=== PATIENT | male | born 1965 | race Hispanic/Latino ===

== ENCOUNTER 2020-01-21 15:47 | Inpatient (IN) | payer OTHER ==
--- NOTE | 2020-01-21 17:10 | XRay Report ---
ABDOMEN 2 VIEW(S) INDICATION / CLINICAL INFORMATION: abd pain, constipation. COMPARISON: None available. FINDINGS: TUBES / LINES: None. BOWEL GAS PATTERN: No significant abnormality. FREE AIR / EXTRALUMINAL GAS: None seen. ADDITIONAL FINDINGS: No significant additional findings. IMPRESSION: 1. No significant abnormality. Signer Name: Juan Pablo Brandon MD Signed: 01/21/2020 5:06 PM Workstation Name: [id number]
[2020-01-21 17:19] LABS: Basophils # (Auto) 0.1 K/mm3 (0.0-0.1); Basophils % (Auto) 0.5 % (0.0-1.8); Eosinophils # (Auto) 0.1 K/mm3 (0.0-0.4); Eosinophils % (Auto) 0.7 % (0.0-4.3); Hematocrit 51.8 % (35.5-45.6); Hemoglobin 18.2 gm/dl (11.8-15.2); Lymphocytes # (Auto) 1.1 K/mm3 (1.2-5.4); Lymphocytes % (Auto) 9.8 % (13.4-35.0); Mean Corpuscular HGB Conc 35 % (32-34); Mean Corpuscular Volume 96 fl (84-94); Monocytes # (Auto) 0.9 K/mm3 (0.0-0.8); Monocytes % (Auto) 7.9 % (0.0-7.3); Platelet Count 197 K/mm3 (140-440); Red Blood Count 5.38 M/mm3 (3.65-5.03); Red Cell Distribution Width 13.4 % (13.2-15.2)
[2020-01-21 17:34] LABS: Alanine Aminotransferase 159 units/L (7-56); Albumin 4.2 g/dL (3.9-5); BUN/Creatinine Ratio 6; Blood Urea Nitrogen 4 mg/dL (9-20); Calcium 9.4 mg/dL (8.4-10.2); Hemolysis Index 16
[2020-01-21] MEDS ORDERED: SODIUM CHLORIDE 0.9% 1000 ML 1,000 ML IV ONE ×2 (19:36→21:46)
[2020-01-21] MEDS ORDERED: HYDROmorphone 1 MG/1 ML INJ IV ONE (19:36)
[2020-01-21] MEDS ORDERED: ONDANSETRON 4 MG/2 ML INJ IV ONE (19:36)
--- NOTE | 2020-01-21 19:38 | Emergency Department Report ---
ED Abdominal Pain HPI - General Chief Complaint: Abdominal Pain Stated Complaint: STOMACH PAIN PUI?: No Time Seen by Provider: 01/21/20 19:19 Source: patient Mode of arrival: Ambulatory Limitations: No Limitations - History of Present Illness Initial Comments: Patient is a 54-year-old male that presents emergency room with complaints of abdominal pain. Patient dates the abdominal pain is generalized. Patient states the abdominal pain is a 10 out of 10. Patient also complains of nausea and vomiting. Patient states he is also having constipation. Patient states he has had a colon resection secondary to diverticulitis x2. Patient states he drinks alcohol every day. Patient takes he drinks a sixpack per day. Patient denies blood in his vomitus. Patient denies diarrhea. Patient denies fever and chills. Patient denies cough. Patient denies chest pain. Patient denies shortness of breath. Patient denies recent travel. Patient denies recent international travel. Patient denies exposure to the novel coronavirus. Patient denies sick contacts. Patient denies fever and chills. Patient denies cough. Patient denies diarrhea. Patient denies coming in contact with anybody with symptoms of the novel coronavirus. MD Complaint: abdominal pain -: Sudden Location: diffuse Radiation: none Migration to: no migration Severity: severe Severity scale (0 -10): 10 Quality: stabbing Consistency: constant Improves With: rest Worsens With: movement Associated Symptoms: nausea, vomiting, constipation. denies: diarrhea, fever, chills, dysuria, hematemesis, hematochezia, melena, hematuria, syncope - Related Data Previous Rx's Medication Instructions Recorded Last Taken Type Docusate Sodium [Colace CAP] 100 mg PO BID PRN #30 capsule 11/07/13 Unknown Rx Pantoprazole [Protonix TAB] 40 mg PO DAILY #30 tablet 11/07/13 Unknown Rx Ibuprofen [Motrin] 600 mg PO Q8H PRN #40 tablet 11/08/15 Unknown Rx Sulfamethoxazole/Trimethoprim 1 each PO BID #20 tablet 11/08/15 Unknown Rx [Bactrim DS TAB] Allergies Allergy/AdvReac Type Severity Reaction Status Date / Time No Known Allergies Allergy Verified 10/30/13 22:42 ED Review of Systems ROS: Stated complaint: STOMACH PAIN Other details as noted in HPI Constitutional: denies: chills, fever Eyes: denies: eye pain, eye discharge, vision change ENT: denies: ear pain, throat pain Respiratory: denies: cough, shortness of breath, wheezing Cardiovascular: denies: chest pain, palpitations Endocrine: no symptoms reported Gastrointestinal: abdominal pain, nausea, vomiting, constipation. denies: diarrhea, hematemesis, melena, hematochezia Genitourinary: denies: urgency, dysuria Musculoskeletal: denies: back pain, joint swelling, arthralgia Skin: denies: rash, lesions Neurological: denies: headache, weakness, paresthesias Psychiatric: denies: anxiety, depression Hematological/Lymphatic: denies: easy bleeding, easy bruising ED Past Medical Hx - Past Medical History Previous Medical History?: Yes Additional medical history: Diverticulitis. Diverticular perforation - Surgical History Past Surgical History?: Yes Additional Surgical History: shoulder surgery, colon resection. left leg hardware - Family History Family history: no significant - Social History Smoking Status: Current Every Day Smoker Substance Use Type: Alcohol - Medications Home Medications: Home Medications Medication Instructions Recorded Confirmed Last Taken Type Docusate Sodium [Colace CAP] 100 mg PO BID PRN #30 capsule 11/07/13 Unknown Rx Pantoprazole [Protonix TAB] 40 mg PO DAILY #30 tablet 11/07/13 Unknown Rx Ibuprofen [Motrin] 600 mg PO Q8H PRN #40 tablet 11/08/15 Unknown Rx Sulfamethoxazole/Trimethoprim 1 each PO BID #20 tablet 11/08/15 Unknown Rx [Bactrim DS TAB] ED Physical Exam - General Limitations: No Limitations General appearance: alert, in no apparent distress - Head Head exam: Present: atraumatic, normocephalic - Eye Eye exam: Present: normal appearance - ENT ENT exam: Present: mucous membranes moist - Neck Neck exam: Present: normal inspection - Respiratory Respiratory exam: Present: normal lung sounds bilaterally. Absent: respiratory distress - Cardiovascular Cardiovascular Exam: Present: regular rate, normal rhythm. Absent: systolic murmur, diastolic murmur, rubs, gallop - GI/Abdominal GI/Abdominal exam: Present: soft, tenderness (Generalized tenderness.), normal bowel sounds - Rectal Rectal exam: Present: deferred - Extremities Exam Extremities exam: Present: normal inspection - Back Exam Back exam: Present: normal inspection - Neurological Exam Neurological exam: Present: alert, oriented X3 - Psychiatric Psychiatric exam: Present: normal affect, normal mood - Skin Skin exam: Present: warm, dry, intact, normal color. Absent: rash ED Course Vital Signs 01/21/20 01/21/20 19:41 20:13 Pulse Rate 78 Respiratory 18 18 Rate Blood Pressure 168/91 [Right] O2 Sat by Pulse 100 Oximetry - Reevaluation(s) Reevaluation #1: Patient's lipase is elevated. Patient will have a CT scan of the abdomen with IV contrast. Patient will have an IV placed and given IV fluids and Dilaudid. 01/21/20 19:36 Reevaluation #2: Patient states his pain is better. I discussed all results with patient. I discussed plan of care with patient. Patient agrees with plan of care and admission. Patient to be admitted to the hospitalist service. 01/21/20 21:47 - Consultations Consultation #1: Hospitalist consulted for admission. Hospitalist to admit patient. Bridge orders placed. 01/21/20 21:47 ED Medical Decision Making - Lab Data Result diagrams: 01/21/20 16:48 01/21/20 16:48 - Radiology Data Radiology results: report reviewed CT abdomen pelvis w con INDICATION / CLINICAL INFORMATION: abd pain/elevated lipase/wbc. etoh, n/v, constiapa. TECHNIQUE: All CT scans at this location are performed using CT dose reduction for ALARA by means of automated exposure control. COMPARISON: None available. FINDINGS: No acute disease is seen in either lower lung. ABDOMEN: Line cholelithiasis. Gallbladder is partially contracted. The extrahepatic bile duct is slightly prominent without intrahepatic biliary dilatation. Fatty infiltration of the liver. The spleen is normal. Mild pancreatic ductal dilatation. There is peripancreatic edema particularly in the lesser sac region. There is normal enhancement of the pancreatic parenchyma and no pancreatic cystic disease is identified. No demonstrated choledocholithiasis. The adrenal glands and kidneys are normal. Atherosclerotic changes of the aortoiliac vessels are demonstrated without aneurysm. No small bowel distention. No mesenteric or retroperitoneal adenopathy. Pelvis: The appendix is normal. No dependent fluid collections or acute inflammatory changes are seen in the pelvis. Degenerative disc disease L5-S1. No acute skeletal abnormalities. IMPRESSION: 1. Mild pancreatitis. 2. Cholelithiasis. 3. Fatty liver. ABDOMEN 2 VIEW(S) INDICATION / CLINICAL INFORMATION: abd pain, constipation. COMPARISON: None available. FINDINGS: TUBES / LINES: None. BOWEL GAS PATTERN: No significant abnormality. FREE AIR / EXTRALUMINAL GAS: None seen. ADDITIONAL FINDINGS: No significant additional findings. IMPRESSION: 1. No significant abnormality. - Medical Decision Making Patient is a 34-year-old male who presents emergency room with generalized abdominal pain. Patient also complained of constipation, nausea and vomiting. Patient is a daily drinker. Patient was found to have elevated lipase. Patient had a CT done and was positive for cholelithiasis and mild pancreatitis. The rest of the patient's labs are unremarkable except for elevated WBC. Patient was given Dilaudid and Zofran and his pain improved.. Patient admitted to the ospitalist service. Patient encouraged to decrease his alcohol and go to rehab in order to quit. - Differential Diagnosis Pancreatitis, abdominal pain, SBO, LBO, N/V, diverticulitis Critical Care Time: Yes Critical care time in (mins) excluding proc time.: 35 Critical care attestation.: If time is entered above; I have spent that time in minutes in the direct care of this critically ill patient, excluding procedure time. Critical Care Time: 35 MINUTES ED Disposition Clinical Impression: Alcohol abuse, Abnormal LFTs, Hyponatremia Cholelithiasis Qualifiers: Cholelithiasis location: gallbladder Cholecystitis presence: without cholecystitis Biliary obstruction: without biliary obstruction Qualified Code(s): K80.20 - Calculus of gallbladder without cholecystitis without obstruction Pancreatitis Qualifiers: Chronicity: acute Pancreatitis type: alcohol induced Acute pancreatitis complication: unspecified Qualified Code(s): K85.20 - Alcohol induced acute pancreatitis without necrosis or infection Nausea & vomiting Qualifiers: Vomiting type: unspecified Vomiting Intractability: intractable Qualified Code(s): R11.2 - Nausea with vomiting, unspecified Abdominal pain Qualifiers: Abdominal location: generalized Qualified Code(s): R10.84 - Generalized abdominal pain Disposition: 09 OP ADMIT IP TO THIS HOSP Is pt being admited?: Yes Does the pt Need Aspirin: No Condition: Critical Time of Disposition: 21:45
--- NOTE | 2020-01-21 21:13 | Cat Scan Report ---
CT abdomen pelvis w con INDICATION / CLINICAL INFORMATION: abd pain/elevated lipase/wbc. etoh, n/v, constiapa. TECHNIQUE: All CT scans at this location are performed using CT dose reduction for ALARA by means of automated e xposure control. COMPARISON: None available. FINDINGS: No acute disease is seen in either lower lung. ABDOMEN: Line cholelithiasis. Gallbladder is partially contracted. The extrahepatic bile duct is slig htly prominent without intrahepatic biliary dilatation. Fatty infiltration of the liver. The spleen is normal. Mild pancreatic ductal dilatation. There is peripancreatic edema particularly in the lesser sac region. There is normal enhancement of the pancreatic parenchyma and no pancreatic cystic disease is identifi ed. No demonstrated choledocholithiasis. The adrenal glands and kidneys are normal. Atherosclerotic changes of the aortoiliac vessels are demonstrated without aneurysm. No small bowel distention. No mesenteric or retroperitoneal adenopathy. Pelvis: The appendix is normal. No dependent fluid collections or acute inflammatory changes are seen in the pelvis. Degenerative disc disease L5-S1. No acute skeletal abnormalities. IMPRESSION: 1. Mild pancreatitis. 2. Cholelithiasis. 3. Fatty liver. Signer Name: Brian Russ MD Signed: 01/21/2020 9:08 PM Workstation Name: [id number]
[2020-01-21] MEDS ORDERED: LORazepam 2 MG/ML VIAL IV PRN ×2 (21:41)
[2020-01-21] MEDS ORDERED: THIAMINE 100 MG, FOLIC ACID 1 MG, MULTIPLE VITAMIN INJ, ADULT 10 ML in SODIUM CHLORIDE ... IV ONE (22:15)
[2020-01-21] MEDS ORDERED: ACETAMINOPHEN 325 MG TAB PO PRN (23:00)
[2020-01-21] MEDS ORDERED: SODIUM CHLORIDE 0.9% 1000 ML 1,000 ML IV SCH (23:00)
--- NOTE | 2020-01-21 23:45 | Ultrasound Report ---
US abdomen limited INDICATION / CLINICAL INFORMATION: GALLBLADDER. COMPARISON: CT abdomen done earlier today. FINDINGS: Hepatic steatosis. Gallbladder is mostly collapsed and contains small calculi. Gallbladder wall is di fficult to evaluate. Common duct is normal in size. IMPRESSION: 1. Contracted gallbladder with stones. Because of the contraction, gallbladder wall and possible walter cholecystic edema are difficult to evaluate. Signer Name: Trent Chan MD Signed: 01/21/2020 11:41 PM Workstation Name: [id number]
--- NOTE | 2020-01-22 00:23 | History and Physical Report ---
History of Present Illness Date of examination: 01/21/20 Date of admission: 01/21/20 23:04 Chief complaint: Abdominal pain History of present illness: 54-year-old male presenting to the emergency room today complaining of abdominal pain. Abdominal pain is said to be generalized and on a scale of 10 was 10/10. He has had associated nausea and vomiting, he has also had some constipation. Patient denies any coffee-ground emesis. He denies any diarrhea, no fever or chills, no chest pain or shortness of breath, no headache or dizziness. Patient admits that he drinks alcohol on a daily basis patient drinks about 6 packs/day. Patient denies any sick contacts, no recent travel, no exposure to anyone with COVID-19. Work-up in the emergency room including CT scan of the abdomen and pelvis reveals mild pancreatitis with cholelithiasis. Labs also shows elevated lipase levels. Past History Past Medical History: other (History of diverticulitis with perforation) Past Surgical History: Other (Colon resection, shoulder surgery in the past, left leg hardware placement) Social history: smoking (Current daily smoker), alcohol abuse Family history: no significant family history Medications and Allergies Allergies Allergy/AdvReac Type Severity Reaction Status Date / Time No Known Allergies Allergy Verified 10/30/13 22:42 Home Medications Medication Instructions Recorded Confirmed Last Taken Type Docusate Sodium [Colace CAP] 100 mg PO BID PRN #30 capsule 11/07/13 01/22/20 01/21/20 Rx Pantoprazole [Protonix TAB] 40 mg PO DAILY #30 tablet 11/07/13 01/22/20 01/19/20 Rx Ibuprofen [Motrin] 600 mg PO Q8H PRN #40 tablet 11/08/15 01/22/20 01/21/20 Rx Sulfamethoxazole/Trimethoprim 1 each PO BID #20 tablet 11/08/15 01/22/20 01/04/20 Rx [Bactrim DS TAB] Active Meds: Active Medications Acetaminophen (Tylenol) 650 mg PO Q4H PRN PRN Reason: Pain MILD(1-3)/Fever >100.5/ALFARO Heparin Sodium (Porcine) (Heparin) 5,000 unit SUB-Q Q8HR MICHELLE Thiamine HCl 100 mg/ Folic Acid 1 mg/ Multivitamins/Minerals 10 ml/ Sodium Chloride 1,011.2 mls @ 250 mls/hr IV ONCE ONE Stop: 01/22/20 02:17 Last Admin: 01/22/20 00:12 Dose: 250 mls/hr Documented by: Sodium Chloride (Nacl 0.9% 1000 Ml) 1,000 mls @ 250 mls/hr IV ONCE ONE Stop: 01/22/20 01:45 Last Admin: 01/21/20 22:21 Dose: 250 mls/hr Documented by: Sodium Chloride (Nacl 0.9% 1000 Ml) 1,000 mls @ 150 mls/hr IV DIRECT MICHELLE Thiamine HCl 100 mg/ Folic Acid 1 mg/ Multivitamins/Minerals 10 ml/ Sodium Chloride 1,011.2 mls @ 250 mls/hr IV Q24H MICHELLE Lorazepam (Ativan) 2 mg IV Q1HR PRN PRN Reason: CIWA-Ar 8-15 Lorazepam (Ativan) 4 mg IV Q1HR PRN PRN Reason: CIWA-Ar 16-25 Lorazepam (Ativan) 4 mg IV Q15MIN PRN PRN Reason: CIWA-Ar >25 Morphine Sulfate (Morphine) 2 mg IV Q4H PRN PRN Reason: Pain, Moderate (4-6) Ondansetron HCl (Zofran) 4 mg IV Q8H PRN PRN Reason: Nausea And Vomiting Sodium Chloride (Sodium Chloride Flush Syringe 10 Ml) 10 ml IV BID MICHELLE Sodium Chloride (Sodium Chloride Flush Syringe 10 Ml) 10 ml IV PRN PRN PRN Reason: LINE FLUSH Review of Systems Constitutional: no fever, no chills Ears, nose, mouth and throat: no nasal congestion, no sore throat Cardiovascular: no chest pain, no palpitations Respiratory: no cough, no shortness of breath Gastrointestinal: abdominal pain, nausea, vomiting, constipation, no BRBPR Genitourinary Male: no dysuria, no hematuria, no flank pain Musculoskeletal: no neck pain, no low back pain Integumentary: no rash, no pruritis Neurological: no headaches, no confusion Psychiatric: no anxiety, no depression Exam - Constitutional Vitals: Temp Pulse Resp BP Pulse Ox 98.5 F 87 16 160/90 97 01/22/20 00:11 01/22/20 00:11 01/22/20 00:11 01/22/20 00:11 01/22/20 00:11 General appearance: Present: no acute distress, well-nourished - EENT Eyes: Present: PERRL, EOM intact ENT: hearing intact, clear oral mucosa, dentition normal - Neck Neck: Present: supple, normal ROM - Respiratory Respiratory effort: normal Respiratory: bilateral: CTA - Cardiovascular Rhythm: regular Heart Sounds: Present: S1 & S2. Absent: gallop, systolic murmur, diastolic murmur, rub - Extremities Extremities: no ischemia, pulses intact, pulses symmetrical, No edema, Full ROM Peripheral Pulses: within normal limits - Abdominal General gastrointestinal: Present: soft, tender, non-distended, normal bowel sounds. Absent: mass - Integumentary Integumentary: Present: clear, warm, dry - Musculoskeletal Musculoskeletal: strength equal bilaterally - Psychiatric Psychiatric: appropriate mood/affect, intact judgment & insight, cooperative, no agitated - Neurologic Neurologic: CNII-XII intact, no focal deficits, moves all extremities Results - Labs CBC & Chem 7: 01/22/20 04:12 01/22/20 04:12 Labs: Abnormal lab results 01/21/20 01/21/20 Range/Units 16:48 16:48 WBC 11.4 H (4.5-11.0) K/mm3 RBC 5.38 H (3.65-5.03) M/mm3 Hgb 18.2 H (11.8-15.2) gm/dl Hct 51.8 H (35.5-45.6) % MCV 96 H (84-94) fl MCH 34 H (28-32) pg MCHC 35 H (32-34) % Lymph % (Auto) 9.8 L (13.4-35.0) % Brooks % (Auto) 7.9 H (0.0-7.3) % Lymph # 1.1 L (1.2-5.4) K/mm3 Brooks # 0.9 H (0.0-0.8) K/mm3 Seg Neutrophils % 81.1 H (40.0-70.0) % Seg Neutrophils # 9.2 H (1.8-7.7) K/mm3 Sodium 131 L (137-145) mmol/L Chloride 90.6 L (98-107) mmol/L BUN 4 L (9-20) mg/dL Creatinine 0.7 L (0.8-1.5) mg/dL Glucose 113 H (75-100) mg/dL AST 131 H (5-40) units/L ALT 159 H (7-56) units/L Lipase 351 H (13-60) units/L Assessment and Plan - Patient Problems (1) Pancreatitis Current Visit: Yes Status: Acute Qualifiers: Chronicity: acute Pancreatitis type: alcohol induced Acute pancreatitis complication: unspecified Qualified Code(s): K85.20 - Alcohol induced acute pancreatitis without necrosis or infection Plan to address problem: Patient has been made n.p.o. Will place on IV fluid normal saline. Will also monitor lipase levels. (2) Alcohol abuse Current Visit: Yes Status: Acute Plan to address problem: Patient has been placed on alcohol withdrawal protocol. We will also place patient on multivitamins. (3) Cholelithiasis Current Visit: Yes Status: Acute Qualifiers: Cholelithiasis location: gallbladder Cholecystitis presence: without cholecystitis Biliary obstruction: without biliary obstruction Qualified Code(s): K80.20 - Calculus of gallbladder without cholecystitis without obstruction Plan to address problem: Patient placed on analgesic medication as needed for pain. (4) Nausea & vomiting Current Visit: Yes Status: Acute Qualifiers: Vomiting type: unspecified Vomiting Intractability: intractable Qualified Code(s): R11.2 - Nausea with vomiting, unspecified Plan to address problem: Possibly secondary to the pancreatitis. Patient has been placed on IV Zofran as needed. (5) DVT prophylaxis Current Visit: Yes Status: Acute Plan to address problem: We will place patient on subcutaneous heparin. (6) Full code status Current Visit: Yes Status: Acute
[2020-01-22] MEDS: MORPHINE 2 MG/1 ML INJ IV PRN ×4 (01:27→20:37)
[2020-01-22] MEDS: ONDANSETRON 4 MG/2 ML INJ IV PRN (01:29)
[2020-01-22] MEDS: LORazepam 2 MG/ML VIAL IV PRN ×4 (01:40→23:20)
[2020-01-22 04:55] LABS: Basophils % (Auto) 0.4 % (0.0-1.8); Eosinophils % (Auto) 0.4 % (0.0-4.3); Hematocrit 48.5 % (35.5-45.6); Hemoglobin 16.8 gm/dl (11.8-15.2); Lymphocytes % (Auto) 11.8 % (13.4-35.0); Mean Corpuscular HGB Conc 35 % (32-34); Mean Corpuscular Volume 96 fl (84-94); Monocytes # (Auto) 0.9 K/mm3 (0.0-0.8); Monocytes % (Auto) 9.9 % (0.0-7.3); Platelet Count 146 K/mm3 (140-440); Red Blood Count 5.06 M/mm3 (3.65-5.03); Red Cell Distribution Width 13.5 % (13.2-15.2)
[2020-01-22 05:06] LABS: INR 1.11 (0.87-1.13)
[2020-01-22 05:07] LABS: BUN/Creatinine Ratio 10; Blood Urea Nitrogen 6 mg/dL (9-20); Calcium 8.4 mg/dL (8.4-10.2); Hemolysis Index 16
[2020-01-22] MEDS: HEPARIN 5,000 UNIT/1 ML VIAL SUB-Q SCH ×3 (07:07→22:54)
[2020-01-22 08:37] LABS: Bilirubin,Direct 0.5 mg/dL (0-0.2)
[2020-01-22 08:38] LABS: Albumin 3.8 g/dL (3.9-5)
--- NOTE | 2020-01-22 11:30 | Magnetic Resonance Report ---
MRCP INDICATION: Gallstone pancreatitis. Abdominal pain, nausea with vomiting. TECHNIQUE: Multiplanar, multisequence MR images were obtained through the abdomen without contrast. COMPARISON: Limited abdominal ultrasound and CT abdomen and pelvis with contrast from 01/21/2020. FINDINGS: Lower chest: No significant abnormality. Liver: No significant abnormality. Gallbladder: Cholelithiasis is noted without evidence of acute cholecystitis. Bile ducts: A 5 mm stone is seen along the distal third of the common bile duct without significant a ssociated obstruction. Pancreas: Similar findings of uncomplicated mild acute pancreatitis. No additional significant abnorm ality. Spleen: No significant abnormality. Adrenals: No significant abnormality. Kidneys: No significant abnormality. GI tract: No significant abnormality of the stomach or the included portions of the small bowel/colon . Peritoneum: No free fluid or fluid collection. Lymph nodes: No significant adenopathy. Vasculature: No significant abnormality. Bones: No significant abnormality. Additional findings: None. IMPRESSION: 1. Nonobstructive choledocholithiasis as above. 2. Cholelithiasis without evidence of acute cholecystitis. 3. Stable uncomplicated acute pancreatitis. Signer Name: Wing Moses MD Signed: 01/22/2020 11:26 AM Workstation Name: [id number]
--- NOTE | 2020-01-22 13:04 | Progress Note ---
Assessment and Plan Assessment and plan: 54-year-old male presenting to the emergency room today complaining of abdominal pain. Abdominal pain is said to be generalized and on a scale of 10 was 10/10. He has had associated nausea and vomiting, he has also had some constipation. Patient denies any coffee-ground emesis. He denies any diarrhea, no fever or chills, no chest pain or shortness of breath, no headache or dizziness. Patient admits that he drinks alcohol on a daily basis patient drinks about 6 packs/day. Patient denies any sick contacts, no recent travel, no exposure to anyone with COVID-19. Work-up in the emergency room including CT scan of the abdomen and pelvis reveals mild pancreatitis with cholelithiasis. Labs also shows elevated lipase levels. MRI: non obstructive choledocholithasis (1) Pancreatitis Current Visit: Yes Status: Acute Qualifiers: Chronicity: acute Pancreatitis type: alcohol induced Acute pancreatitis complication: unspecified Qualified Code(s): K85.20 - Alcohol induced acute pancreatitis without necrosis or infection Plan to address problem: clear liquid if tolerated. GI consult Will place on IV fluid normal saline. Will also monitor lipase levels. Monitor and advance as tolerated (2) Alcohol abuse Current Visit: Yes Status: Acute Plan to address problem: Patient has been placed on alcohol withdrawal protocol. We will also place patient on multivitamins. 15 mins counselling to quit etoh (3) Cholelithiasis Current Visit: Yes Status: Acute Qualifiers: Cholelithiasis location: gallbladder Cholecystitis presence: without cholecystitis Biliary obstruction: without biliary obstruction Qualified Code(s): K80.20 - Calculus of gallbladder without cholecystitis without obstruction Plan to address problem: Patient placed on analgesic medication as needed for pain. (4) Nausea & vomiting Current Visit: Yes Status: Acute Qualifiers: Vomiting type: unspecified Vomiting Intractability: intractable Qualified Code(s): R11.2 - Nausea with vomiting, unspecified Plan to address problem: Possibly secondary to the pancreatitis. Patient has been placed on IV Zofran as needed. (5) Hyponatremia Current Visit: Yes Status: Acute Plan to address problem: monitor. (6) Hyperbiliriumenima Current Visit: Yes Status: Acute Plan to address problem: monitor (7) DVT prophylaxis Current Visit: Yes Status: Acute Plan to address problem: We will place patient on subcutaneous heparin. (6) Full code status Current Visit: Yes Status: Acute History Interval history: Patient seen and examined, resting comfortable although still with abdominal pain Hospitalist Physical - Physical exam Narrative exam: General appearance: Present: no acute distress, well-nourished - EENT Eyes: Present: PERRL, EOM intact ENT: hearing intact, clear oral mucosa, dentition normal - Neck Neck: Present: supple, normal ROM - Respiratory Respiratory effort: normal Respiratory: bilateral: CTA - Cardiovascular Rhythm: regular Heart Sounds: Present: S1 & S2. Absent: gallop, systolic murmur, diastolic murmur, rub - Extremities Extremities: no ischemia, pulses intact, pulses symmetrical, No edema, Full ROM Peripheral Pulses: within normal limits - Abdominal General gastrointestinal: Present: soft, tender, non-distended, normal bowel sounds. Absent: mass - Integumentary Integumentary: Present: clear, warm, dry - Musculoskeletal Musculoskeletal: strength equal bilaterally - Psychiatric Psychiatric: appropriate mood/affect, intact judgment & insight, cooperative, no agitated - Neurologic Neurologic: CNII-XII intact, no focal deficits, moves all extremities - Constitutional Vitals: Temp Pulse Resp BP Pulse Ox 99.2 F 88 18 176/132 95 01/22/20 12:56 01/22/20 12:56 01/22/20 12:56 01/22/20 12:56 01/22/20 12:56 General appearance: Present: no acute distress, well-nourished Results - Labs CBC & Chem 7: 01/23/20 04:07 01/23/20 04:07 Labs: Laboratory Last Values WBC 8.8 K/mm3 (4.5-11.0) 01/22/20 04:12 RBC 5.06 M/mm3 (3.65-5.03) H 01/22/20 04:12 Hgb 16.8 gm/dl (11.8-15.2) H 01/22/20 04:12 Hct 48.5 % (35.5-45.6) H 01/22/20 04:12 MCV 96 fl (84-94) H 01/22/20 04:12 MCH 33 pg (28-32) H 01/22/20 04:12 MCHC 35 % (32-34) H 01/22/20 04:12 RDW 13.5 % (13.2-15.2) 01/22/20 04:12 Plt Count 146 K/mm3 (140-440) 01/22/20 04:12 Lymph % (Auto) 11.8 % (13.4-35.0) L 01/22/20 04:12 [place] % (Auto) 9.9 % (0.0-7.3) H 01/22/20 04:12 Eos % (Auto) 0.4 % (0.0-4.3) 01/22/20 04:12 Baso % (Auto) 0.4 % (0.0-1.8) 01/22/20 04:12 Lymph # 1.0 K/mm3 (1.2-5.4) L 01/22/20 04:12 [place] # 0.9 K/mm3 (0.0-0.8) H 01/22/20 04:12 Eos # 0.0 K/mm3 (0.0-0.4) 01/22/20 04:12 Baso # 0.0 K/mm3 (0.0-0.1) 01/22/20 04:12 Seg Neutrophils % 77.5 % (40.0-70.0) H 01/22/20 04:12 Seg Neutrophils # 6.8 K/mm3 (1.8-7.7) 01/22/20 04:12 PT 14.4 Sec. (12.2-14.9) 01/22/20 04:12 INR 1.11 (0.87-1.13) 01/22/20 04:12 Sodium 133 mmol/L (137-145) L 01/22/20 04:12 Potassium 4.3 mmol/L (3.6-5.0) 01/22/20 04:12 Chloride 96.8 mmol/L (98-107) L 01/22/20 04:12 Carbon Dioxide 25 mmol/L (22-30) 01/22/20 04:12 Anion Gap 16 mmol/L 01/22/20 04:12 BUN 6 mg/dL (9-20) L 01/22/20 04:12 Creatinine 0.6 mg/dL (0.8-1.5) L 01/22/20 04:12 Estimated GFR > 60 ml/min 01/22/20 04:12 BUN/Creatinine Ratio 10 % 01/22/20 04:12 Glucose 100 mg/dL (75-100) 01/22/20 04:12 Calcium 8.4 mg/dL (8.4-10.2) 01/22/20 04:12 Phosphorus 3.20 mg/dL (2.5-4.5) 01/21/20 21:51 Magnesium 2.10 mg/dL (1.7-2.3) 01/21/20 21:51 Total Bilirubin 1.30 mg/dL (0.1-1.2) H 01/22/20 07:20 Direct Bilirubin 0.5 mg/dL (0-0.2) H 01/22/20 07:20 Indirect Bilirubin 0.8 mg/dL 01/22/20 07:20 AST 76 units/L (5-40) H 01/22/20 07:20 ALT 109 units/L (7-56) H 01/22/20 07:20 Alkaline Phosphatase 84 units/L (35-129) 01/22/20 07:20 Total Protein 6.3 g/dL (6.3-8.2) 01/22/20 07:20 Albumin 3.8 g/dL (3.9-5) L 01/22/20 07:20 Albumin/Globulin Ratio 1.5 % 01/22/20 07:20 Lipase 217 units/L (13-60) H 01/22/20 04:12 Craft/IV: Voiding Method Toilet IV Catheter Type [Right INT / Saline Lock Antecubital] Active Medications - Current Medications Current Medications: Generic Name Dose Route Start Last Admin Trade Name Wesleyq PRN Reason Stop Dose Admin Acetaminophen 650 mg 01/21/20 23:00 Tylenol PO Q4H PRN Pain MILD(1-3)/Fever >100.5/ALFARO Heparin Sodium (Porcine) 5,000 unit 01/22/20 06:00 01/22/20 07:07 Heparin SUB-Q 5,000 unit Q8HR MICHELLE Administration Sodium Chloride 1,000 mls @ 150 mls/hr 01/21/20 23:00 01/22/20 01:47 Nacl 0.9% 1000 Ml IV 150 mls/hr DIRECT MICHELLE Administration Thiamine HCl 100 mg/ Folic 1,011.2 mls @ 250 mls/hr 01/22/20 22:00 Acid 1 mg/ Multivitamins/ IV Minerals 10 ml/ Sodium Q24H MICHELLE Chloride Lorazepam 2 mg 01/21/20 21:41 01/22/20 06:11 Ativan IV 2 mg Q1HR PRN Administration CIWA-Ar 8-15 Lorazepam 4 mg 01/21/20 21:41 Ativan IV Q1HR PRN CIWA-Ar 16-25 Lorazepam 4 mg 01/21/20 21:41 Ativan IV Q15MIN PRN CIWA-Ar >25 Morphine Sulfate 2 mg 01/21/20 23:00 01/22/20 04:43 Morphine IV 2 mg Q4H PRN Administration Pain, Moderate (4-6) Ondansetron HCl 4 mg 01/21/20 23:00 01/22/20 01:29 Zofran IV 4 mg Q8H PRN Administration Nausea And Vomiting Sodium Chloride 10 ml 01/22/20 10:00 Sodium Chloride Flush Syringe 10 Ml IV BID MICHELLE Sodium Chloride 10 ml 01/21/20 23:00 Sodium Chloride Flush Syringe 10 Ml IV PRN PRN LINE FLUSH
[2020-01-22] MEDS: D5W/LACTATED RINGERS 1,000 ML IV SCH (18:30)
[2020-01-23] MEDS: THIAMINE 100 MG, FOLIC ACID 1 MG, MULTIPLE VITAMIN INJ, ADULT 10 ML in SODIUM CHLORIDE ... IV SCH ×2 (00:11→22:52)
[2020-01-23] MEDS: MORPHINE 2 MG/1 ML INJ IV PRN ×5 (01:45→22:51)
[2020-01-23 05:00] LABS: Hematocrit 45.6 % (35.5-45.6); Hemoglobin 15.6 gm/dl (11.8-15.2); Mean Corpuscular HGB Conc 34 % (32-34); Mean Corpuscular Volume 96 fl (84-94); Platelet Count 146 K/mm3 (140-440); Red Blood Count 4.75 M/mm3 (3.65-5.03); Red Cell Distribution Width 13.1 % (13.2-15.2)
[2020-01-23 05:13] LABS: Alanine Aminotransferase 70 units/L (7-56); Albumin 3.3 g/dL (3.9-5); BUN/Creatinine Ratio 12; Blood Urea Nitrogen 7 mg/dL (9-20); Calcium 8.1 mg/dL (8.4-10.2); Hemolysis Index 8
[2020-01-23] MEDS: HEPARIN 5,000 UNIT/1 ML VIAL SUB-Q SCH ×2 (06:59→13:07)
--- NOTE | 2020-01-23 08:57 | Progress Note ---
Assessment and Plan Assessment and plan: 54-year-old male presenting to the emergency room today complaining of abdominal pain. Abdominal pain is said to be generalized and on a scale of 10 was 10/10. He has had associated nausea and vomiting, he has also had some constipation. Patient denies any coffee-ground emesis. He denies any diarrhea, no fever or chills, no chest pain or shortness of breath, no headache or dizziness. Patient admits that he drinks alcohol on a daily basis patient drinks about 6 packs/day. Patient denies any sick contacts, no recent travel, no exposure to anyone with COVID-19. Work-up in the emergency room including CT scan of the abdomen and pelvis reveals mild pancreatitis with cholelithiasis. Labs also shows elevated lipase levels. MRI: non obstructive choledocholithasis 01/22: Per patient and also has documented pains scale still 7. Keep n.p.o. Continue supportive care with IV fluids. Start p.o. clear liquids when patient is able to tolerate. Continue pain control. MRI reviewed as noted above. CIWA score is 1. No evidence of withdrawal at this time. (1) Pancreatitis Current Visit: Yes Status: Acute Qualifiers: Chronicity: acute Pancreatitis type: alcohol induced Acute pancreatitis complication: unspecified Qualified Code(s): K85.20 - Alcohol induced acute pancreatitis without necrosis or infection Plan to address problem: clear liquid if tolerated. GI consult Will place on IV fluid normal saline. Will also monitor lipase levels. Monitor and advance as tolerated (2) Alcohol abuse Current Visit: Yes Status: Acute Plan to address problem: Patient has been placed on alcohol withdrawal protocol. We will also place patient on multivitamins. 15 mins counselling to quit etoh (3) Cholelithiasis Current Visit: Yes Status: Acute Qualifiers: Cholelithiasis location: gallbladder Cholecystitis presence: without cholecystitis Biliary obstruction: without biliary obstruction Qualified Code(s): K80.20 - Calculus of gallbladder without cholecystitis without obstruction Plan to address problem: Patient placed on analgesic medication as needed for pain. (4) Nausea & vomiting Current Visit: Yes Status: Acute Qualifiers: Vomiting type: unspecified Vomiting Intractability: intractable Qualified Code(s): R11.2 - Nausea with vomiting, unspecified Plan to address problem: Possibly secondary to the pancreatitis. Patient has been placed on IV Zofran as needed. (5) Hyponatremia Current Visit: Yes Status: Acute Plan to address problem: monitor. (6) Hyperbiliriumenima Current Visit: Yes Status: Acute Plan to address problem: monitor (7) DVT prophylaxis Current Visit: Yes Status: Acute Plan to address problem: We will place patient on subcutaneous heparin. (6) Full code status Current Visit: Yes Status: Acute History Interval history: Patient seen and examined, resting comfortable although still with abdominal pain, per nursing staff keeps leaving the floor counseling has been provided to the patient against this. States that he was able to tolerate some clear liquids today. Hospitalist Physical - Physical exam Narrative exam: General appearance: Present: no acute distress, well-nourished - EENT Eyes: Present: PERRL, EOM intact ENT: hearing intact, clear oral mucosa, dentition normal - Neck Neck: Present: supple, normal ROM - Respiratory Respiratory effort: normal Respiratory: bilateral: CTA - Cardiovascular Rhythm: regular Heart Sounds: Present: S1 & S2. Absent: gallop, systolic murmur, diastolic murmur, rub - Extremities Extremities: no ischemia, pulses intact, pulses symmetrical, No edema, Full ROM Peripheral Pulses: within normal limits - Abdominal General gastrointestinal: Present: soft, tender, non-distended, normal bowel sounds. Absent: mass - Integumentary Integumentary: Present: clear, warm, dry - Musculoskeletal Musculoskeletal: strength equal bilaterally - Psychiatric Psychiatric: appropriate mood/affect, intact judgment & insight, cooperative, no agitated - Neurologic Neurologic: CNII-XII intact, no focal deficits, moves all extremities - Constitutional Vitals: Temp Pulse Resp BP Pulse Ox 97.6 F 81 18 157/90 92 01/23/20 07:21 01/23/20 07:21 01/23/20 07:21 01/23/20 07:21 01/23/20 07:21 General appearance: Present: no acute distress, well-nourished Results - Labs CBC & Chem 7: 01/23/20 04:07 01/23/20 04:07 Labs: Laboratory Last Values WBC 7.1 K/mm3 (4.5-11.0) 01/23/20 04:07 RBC 4.75 M/mm3 (3.65-5.03) 01/23/20 04:07 Hgb 15.6 gm/dl (11.8-15.2) H 01/23/20 04:07 Hct 45.6 % (35.5-45.6) 01/23/20 04:07 MCV 96 fl (84-94) H 01/23/20 04:07 MCH 33 pg (28-32) H 01/23/20 04:07 MCHC 34 % (32-34) 01/23/20 04:07 RDW 13.1 % (13.2-15.2) L 01/23/20 04:07 Plt Count 146 K/mm3 (140-440) 01/23/20 04:07 Lymph % (Auto) 11.8 % (13.4-35.0) L 01/22/20 04:12 [place] % (Auto) 9.9 % (0.0-7.3) H 01/22/20 04:12 Eos % (Auto) 0.4 % (0.0-4.3) 01/22/20 04:12 Baso % (Auto) 0.4 % (0.0-1.8) 01/22/20 04:12 Lymph # 1.0 K/mm3 (1.2-5.4) L 01/22/20 04:12 [place] # 0.9 K/mm3 (0.0-0.8) H 01/22/20 04:12 Eos # 0.0 K/mm3 (0.0-0.4) 01/22/20 04:12 Baso # 0.0 K/mm3 (0.0-0.1) 01/22/20 04:12 Seg Neutrophils % 77.5 % (40.0-70.0) H 01/22/20 04:12 Seg Neutrophils # 6.8 K/mm3 (1.8-7.7) 01/22/20 04:12 PT 14.4 Sec. (12.2-14.9) 01/22/20 04:12 INR 1.11 (0.87-1.13) 01/22/20 04:12 Sodium 133 mmol/L (137-145) L 01/23/20 04:07 Potassium 3.9 mmol/L (3.6-5.0) 01/23/20 04:07 Chloride 97.7 mmol/L (98-107) L 01/23/20 04:07 Carbon Dioxide 24 mmol/L (22-30) 01/23/20 04:07 Anion Gap 15 mmol/L 01/23/20 04:07 BUN 7 mg/dL (9-20) L 01/23/20 04:07 Creatinine 0.6 mg/dL (0.8-1.5) L 01/23/20 04:07 Estimated GFR > 60 ml/min 01/23/20 04:07 BUN/Creatinine Ratio 12 % 01/23/20 04:07 Glucose 92 mg/dL (75-100) 01/23/20 04:07 Calcium 8.1 mg/dL (8.4-10.2) L 01/23/20 04:07 Phosphorus 3.20 mg/dL (2.5-4.5) 01/21/20 21:51 Magnesium 2.10 mg/dL (1.7-2.3) 01/21/20 21:51 Total Bilirubin 1.20 mg/dL (0.1-1.2) 01/23/20 04:07 Direct Bilirubin 0.5 mg/dL (0-0.2) H 01/22/20 07:20 Indirect Bilirubin 0.8 mg/dL 01/22/20 07:20 AST 44 units/L (5-40) H 01/23/20 04:07 ALT 70 units/L (7-56) H 01/23/20 04:07 Alkaline Phosphatase 66 units/L (35-129) 01/23/20 04:07 Total Protein 6.8 g/dL (6.3-8.2) 01/23/20 04:07 Albumin 3.3 g/dL (3.9-5) L 01/23/20 04:07 Albumin/Globulin Ratio 0.9 % 01/23/20 04:07 Lipase 217 units/L (13-60) H 01/22/20 04:12 Craft/IV: Voiding Method Urinal IV Catheter Type [Left Forearm INT / Saline Lock ] IV Catheter Type [Right INT / Saline Lock Antecubital] Active Medications - Current Medications Current Medications: Generic Name Dose Route Start Last Admin Trade Name Freq PRN Reason Stop Dose Admin Acetaminophen 650 mg 01/21/20 23:00 Tylenol PO Q4H PRN Pain MILD(1-3)/Fever >100.5/ALFARO Heparin Sodium (Porcine) 5,000 unit 01/22/20 06:00 01/23/20 06:59 Heparin SUB-Q 5,000 unit Q8HR MICHELLE Administration Sodium Chloride 1,000 mls @ 150 mls/hr 01/21/20 23:00 01/22/20 01:47 Nacl 0.9% 1000 Ml IV 150 mls/hr DIRECT MICHELLE Administration Thiamine HCl 100 mg/ Folic 1,011.2 mls @ 250 mls/hr 01/22/20 22:00 01/23/20 00:11 Acid 1 mg/ Multivitamins/ IV 250 mls/hr Minerals 10 ml/ Sodium Q24H MICHELLE Administration Chloride Dextrose/Lactated Ringer's 1,000 mls @ 125 mls/hr 01/22/20 15:00 01/22/20 18:30 D5lr IV 125 mls/hr DIRECT MICHELLE Administration Lorazepam 2 mg 01/21/20 21:41 01/22/20 23:20 Ativan IV 2 mg Q1HR PRN Administration CIWA-Ar 8-15 Lorazepam 4 mg 01/21/20 21:41 Ativan IV Q1HR PRN CIWA-Ar 16-25 Lorazepam 4 mg 01/21/20 21:41 Ativan IV Q15MIN PRN CIWA-Ar >25 Morphine Sulfate 2 mg 01/21/20 23:00 01/23/20 06:02 Morphine IV 2 mg Q4H PRN Administration Pain, Moderate (4-6) Ondansetron HCl 4 mg 01/21/20 23:00 01/22/20 01:29 Zofran IV 4 mg Q8H PRN Administration Nausea And Vomiting Sodium Chloride 10 ml 01/22/20 10:00 01/22/20 21:39 Sodium Chloride Flush Syringe 10 Ml IV 10 ml BID MICHELLE Administration Sodium Chloride 10 ml 01/21/20 23:00 Sodium Chloride Flush Syringe 10 Ml IV PRN PRN LINE FLUSH
[2020-01-23] MEDS: D5W/LACTATED RINGERS 1,000 ML IV SCH ×2 (09:30→18:01)
[2020-01-23] MEDS ORDERED: DOCUSATE SODIUM 100 MG CAP PO PRN (13:21)
[2020-01-23] MEDS: amLODIPine 10 MG TAB PO SCH (16:06)
[2020-01-23] MEDS ORDERED: cloNIDine 0.1 MG TAB PO ONE (17:30)
--- NOTE | 2020-01-23 20:04 | Event Note ---
Date: 01/23/20 - full GI consult dictated - ERCP in am
[2020-01-24] MEDS: MORPHINE 2 MG/1 ML INJ IV PRN ×2 (03:32→20:15)
--- NOTE | 2020-01-24 03:57 | Consultation ---
REFERRING PHYSICIAN: Abhishek Aaron MD INDICATION: 1. Abdominal pain. 2. Pancreatitis. 3. Choledocholithiasis. HISTORY OF PRESENT ILLNESS: The patient is a 54-year-old male who presents for abdominal pain. The patient has a history of chronic alcohol abuse. The patient reports 10/10 abdominal pain along with some constipation. He denies any nausea or vomiting. Denies any rectal bleeding. The patient subsequently came to Emergency Room where a CT scan showed pancreatitis with dialysis. The patient was subsequently admitted and GI consulted. Denies any other specific complaints. PAST MEDICAL HISTORY: Diverticulitis with perforation. MEDICATIONS: Reviewed and updated in chart. ALLERGIES: No known drug allergies. SOCIAL HISTORY: Alcohol abuse and smoker. FAMILY HISTORY: Negative for colon cancer, IBD, or liver disease. REVIEW OF SYSTEMS: GENERAL: Reports some weakness. HEENT: No visual complaints or tinnitus. PULMONARY: No shortness of breath. No chest pain. GASTROINTESTINAL: Reports abdominal vertical 13-point review of systems otherwise negative. PHYSICAL EXAMINATION: VITAL SIGNS: Temperature of 98.1, pulse 84, respiration 18, blood pressure 152/90. GENERAL: Fairly nourished male in no acute distress. HEENT: Pupils equal, round and reactive. PULMONARY: Clear to auscultation bilaterally. CARDIOVASCULAR: Regular rate and rhythm. Normal S1, S2. ABDOMEN: but soft. LABORATORY DATA: Pertinent for white count 17, hemoglobin and hematocrit 50.6 and 45.6, platelet count of 146. Chem-7: Sodium of 133, potassium 3.9, chloride 98, CO2 of 24, BUN and creatinine of 17.6, AST and ALT of 44 and 70 with a total bilirubin of 1.3 and an alkaline phosphatase of 66. MRI, MRCP performed on 01/21/2020, shows signs of choledocholithiasis as well as cholecystitis as well as with cholelithiasis and pancreatitis. ASSESSMENT AND PLAN: A 54-year-old male with chronic alcohol abuse, now admitted with signs and symptoms of pancreatitis with noted lipase of 500, now with an MRCP shows choledocholithiasis. The patient most likely has gallstone pancreatitis with choledocholithiasis. PLAN: 1. Review imaging including CT and MRI. 2. Follow labs including CRP. 3. Clear liquid diet as ordered with n.p.o. after midnight. 4. Plan ERCP tomorrow. 5. Follow further recommendation based on progress of the above. JOB# [id number] CINDI/EPIFANIO
[2020-01-24 05:12] LABS: Hematocrit 43.9 % (35.5-45.6); Hemoglobin 15.3 gm/dl (11.8-15.2); Mean Corpuscular HGB Conc 35 % (32-34); Mean Corpuscular Volume 96 fl (84-94); Platelet Count 155 K/mm3 (140-440); Red Blood Count 4.55 M/mm3 (3.65-5.03); Red Cell Distribution Width 12.9 % (13.2-15.2)
[2020-01-24 05:30] LABS: Alanine Aminotransferase 54 units/L (7-56); Albumin 3.2 g/dL (3.9-5); BUN/Creatinine Ratio 7; Blood Urea Nitrogen 4 mg/dL (9-20); Calcium 8.5 mg/dL (8.4-10.2); Hemolysis Index 3
[2020-01-24] MEDS ORDERED: SODIUM CHLORIDE 0.9% 100 ML ONE (09:04)
[2020-01-24] MEDS ORDERED: WATER FOR IRRIG STERILE 1,000 ML BOTTLE ONE (09:05)
[2020-01-24] MEDS ORDERED: SODIUM CHLORIDE 0.9% 1000 ML 1,000 ML ONE (09:05)
[2020-01-24] MEDS ORDERED: WATER FOR IRRIG STERILE 250 ML BOTTLE IR ONE (09:05)
[2020-01-24] MEDS ORDERED: ePHEDrine SULFATE 50 MG/1 ML INJ ONE (09:20)
[2020-01-24] MEDS ORDERED: PHENYLEPHRINE/NS 1,000 MCG/10 ML SYRINGE (OR USE) IV ONE (09:22)
[2020-01-24] MEDS ORDERED: GLYCOPYRROLATE 0.4 MG/2 ML INJ ONE (09:22)
[2020-01-24] MEDS ORDERED: MIDAZOLAM 2 MG/2 ML INJ ONE (09:22)
[2020-01-24] MEDS ORDERED: LIDOCAINE MPF (2%) 20 MG/1 ML VIAL 5 ML ONE (09:22)
[2020-01-24] MEDS ORDERED: fentaNYL 100 MCG/2 ML INJ ONE (09:22)
[2020-01-24] MEDS ORDERED: SUCCINYLCHOLINE CHLORIDE 200 MG/10 ML INJ MDV ONE (09:22)
[2020-01-24] MEDS ORDERED: KETAMINE/STERILE WATER 50 MG/ML SYRINGE ONE (09:23)
[2020-01-24] MEDS ORDERED: propofoL 200 MG/20 ML VIAL IV ONE ×2 (09:23→15:06)
--- NOTE | 2020-01-24 09:37 | Progress Note ---
Assessment and Plan Assessment and plan: 54-year-old male presenting to the emergency room today complaining of abdominal pain. Abdominal pain is said to be generalized and on a scale of 10 was 10/10. He has had associated nausea and vomiting, he has also had some constipation. Patient denies any coffee-ground emesis. He denies any diarrhea, no fever or chills, no chest pain or shortness of breath, no headache or dizziness. Patient admits that he drinks alcohol on a daily basis patient drinks about 6 packs/day. Patient denies any sick contacts, no recent travel, no exposure to anyone with COVID-19. Work-up in the emergency room including CT scan of the abdomen and pelvis reveals mild pancreatitis with cholelithiasis. Labs also shows elevated lipase levels. MRI: non obstructive choledocholithasis 01/22: Per patient and also has documented pains scale still 7. Keep n.p.o. Continue supportive care with IV fluids. Start p.o. clear liquids when patient is able to tolerate. Continue pain control. MRI reviewed as noted above. CIWA score is 1. No evidence of withdrawal at this time. 01/23: Clinically improving awaiting ERCP. Following ERCP will restart diet and if doing well will discharge in a.m. hypertension noted yesterday improvement with initiation of Norvasc. Patient will recommended to keep a blood pressure diary and follow-up primary care physician outpatient (1) Pancreatitis Current Visit: Yes Status: Acute Qualifiers: Chronicity: acute Pancreatitis type: alcohol induced Acute pancreatitis complication: unspecified Qualified Code(s): K85.20 - Alcohol induced acute pancreatitis without necrosis or infection Plan to address problem: clear liquid if tolerated. GI consult Will place on IV fluid normal saline. Will also monitor lipase levels. Monitor and advance as tolerated (2) Alcohol abuse Current Visit: Yes Status: Acute Plan to address problem: Patient has been placed on alcohol withdrawal protocol. We will also place patient on multivitamins. 15 mins counselling to quit etoh (3) Cholelithiasis Current Visit: Yes Status: Acute Qualifiers: Cholelithiasis location: gallbladder Cholecystitis presence: without cholecystitis Biliary obstruction: without biliary obstruction Qualified Code(s): K80.20 - Calculus of gallbladder without cholecystitis without obstruction Plan to address problem: Patient placed on analgesic medication as needed for pain. (4) Nausea & vomiting Current Visit: Yes Status: Acute Qualifiers: Vomiting type: unspecified Vomiting Intractability: intractable Qualified Code(s): R11.2 - Nausea with vomiting, unspecified Plan to address problem: Possibly secondary to the pancreatitis. Patient has been placed on IV Zofran as needed. (5) Hyponatremia Current Visit: Yes Status: Acute Plan to address problem: monitor. (6) Hyperbiliriumenima Current Visit: Yes Status: Acute Plan to address problem: monitor (7) DVT prophylaxis Current Visit: Yes Status: Acute Plan to address problem: We will place patient on subcutaneous heparin. (6) Full code status Current Visit: Yes Status: Acute History Interval history: Patient seen and examined, resting comfortable no new complaints Hospitalist Physical - Physical exam Narrative exam: General appearance: Present: no acute distress, well-nourished - EENT Eyes: Present: PERRL, EOM intact ENT: hearing intact, clear oral mucosa, dentition normal - Neck Neck: Present: supple, normal ROM - Respiratory Respiratory effort: normal Respiratory: bilateral: CTA - Cardiovascular Rhythm: regular Heart Sounds: Present: S1 & S2. Absent: gallop, systolic murmur, diastolic murmur, rub - Extremities Extremities: no ischemia, pulses intact, pulses symmetrical, No edema, Full ROM Peripheral Pulses: within normal limits - Abdominal General gastrointestinal: Present: soft, tender, non-distended, normal bowel sounds. Absent: mass - Integumentary Integumentary: Present: clear, warm, dry - Musculoskeletal Musculoskeletal: strength equal bilaterally - Psychiatric Psychiatric: appropriate mood/affect, intact judgment & insight, cooperative, no agitated - Neurologic Neurologic: CNII-XII intact, no focal deficits, moves all extremities - Constitutional Vitals: Temp Pulse Resp BP Pulse Ox 97.9 F 71 19 146/81 93 01/24/20 07:01 01/24/20 07:01 01/24/20 07:01 01/24/20 07:01 01/24/20 07:01 General appearance: Present: no acute distress, well-nourished Results - Labs CBC & Chem 7: 01/24/20 04:03 01/24/20 04:03 Labs: Laboratory Last Values WBC 6.0 K/mm3 (4.5-11.0) 01/24/20 04:03 RBC 4.55 M/mm3 (3.65-5.03) 01/24/20 04:03 Hgb 15.3 gm/dl (11.8-15.2) H 01/24/20 04:03 Hct 43.9 % (35.5-45.6) 01/24/20 04:03 MCV 96 fl (84-94) H 01/24/20 04:03 MCH 34 pg (28-32) H 01/24/20 04:03 MCHC 35 % (32-34) H 01/24/20 04:03 RDW 12.9 % (13.2-15.2) L 01/24/20 04:03 Plt Count 155 K/mm3 (140-440) 01/24/20 04:03 Lymph % (Auto) 11.8 % (13.4-35.0) L 01/22/20 04:12 [place] % (Auto) 9.9 % (0.0-7.3) H 01/22/20 04:12 Eos % (Auto) 0.4 % (0.0-4.3) 01/22/20 04:12 Baso % (Auto) 0.4 % (0.0-1.8) 01/22/20 04:12 Lymph # 1.0 K/mm3 (1.2-5.4) L 01/22/20 04:12 [place] # 0.9 K/mm3 (0.0-0.8) H 01/22/20 04:12 Eos # 0.0 K/mm3 (0.0-0.4) 01/22/20 04:12 Baso # 0.0 K/mm3 (0.0-0.1) 01/22/20 04:12 Seg Neutrophils % 77.5 % (40.0-70.0) H 01/22/20 04:12 Seg Neutrophils # 6.8 K/mm3 (1.8-7.7) 01/22/20 04:12 PT 14.4 Sec. (12.2-14.9) 01/22/20 04:12 INR 1.11 (0.87-1.13) 01/22/20 04:12 Sodium 132 mmol/L (137-145) L 01/24/20 04:03 Potassium 3.6 mmol/L (3.6-5.0) 01/24/20 04:03 Chloride 97.0 mmol/L (98-107) L 01/24/20 04:03 Carbon Dioxide 24 mmol/L (22-30) 01/24/20 04:03 Anion Gap 15 mmol/L 01/24/20 04:03 BUN 4 mg/dL (9-20) L 01/24/20 04:03 Creatinine 0.6 mg/dL (0.8-1.5) L 01/24/20 04:03 Estimated GFR > 60 ml/min 01/24/20 04:03 BUN/Creatinine Ratio 7 % 01/24/20 04:03 Glucose 116 mg/dL (75-100) H 01/24/20 04:03 Calcium 8.5 mg/dL (8.4-10.2) 01/24/20 04:03 Phosphorus 3.20 mg/dL (2.5-4.5) 01/21/20 21:51 Magnesium 2.10 mg/dL (1.7-2.3) 01/21/20 21:51 Total Bilirubin 1.00 mg/dL (0.1-1.2) 01/24/20 04:03 Direct Bilirubin 0.5 mg/dL (0-0.2) H 01/22/20 07:20 Indirect Bilirubin 0.8 mg/dL 01/22/20 07:20 AST 30 units/L (5-40) 01/24/20 04:03 ALT 54 units/L (7-56) 01/24/20 04:03 Alkaline Phosphatase 62 units/L (35-129) 01/24/20 04:03 C-Reactive Protein 6.70 mg/dL (0.00-1.30) H 01/24/20 04:03 Total Protein 6.6 g/dL (6.3-8.2) 01/24/20 04:03 Albumin 3.2 g/dL (3.9-5) L 01/24/20 04:03 Albumin/Globulin Ratio 0.9 % 01/24/20 04:03 Lipase 217 units/L (13-60) H 01/22/20 04:12 Craft/IV: Voiding Method Toilet IV Catheter Type [Left Forearm Peripheral IV ] IV Catheter Type [Right INT / Saline Lock Antecubital] Active Medications - Current Medications Current Medications: Generic Name Dose Route Start Last Admin Trade Name Freq PRN Reason Stop Dose Admin Acetaminophen 650 mg 01/21/20 23:00 Tylenol PO Q4H PRN Pain MILD(1-3)/Fever >100.5/ALFARO Amlodipine Besylate 10 mg 01/23/20 16:00 01/23/20 16:06 Amlodipine PO 10 mg QDAY MICHELLE Administration Docusate Sodium 100 mg 01/23/20 13:21 Colace PO BID PRN Constipation Thiamine HCl 100 mg/ Folic 1,011.2 mls @ 250 mls/hr 01/22/20 22:00 01/23/20 22:52 Acid 1 mg/ Multivitamins/ IV 250 mls/hr Minerals 10 ml/ Sodium Q24H MICHELLE Administration Chloride Dextrose/Lactated Ringer's 1,000 mls @ 125 mls/hr 01/22/20 15:00 01/23/20 18:01 D5lr IV 125 mls/hr DIRECT MICHELLE Administration Lorazepam 2 mg 01/21/20 21:41 01/22/20 23:20 Ativan IV 2 mg Q1HR PRN Administration CIWA-Ar 8-15 Lorazepam 4 mg 01/21/20 21:41 Ativan IV Q1HR PRN CIWA-Ar 16-25 Lorazepam 4 mg 01/21/20 21:41 Ativan IV Q15MIN PRN CIWA-Ar >25 Morphine Sulfate 2 mg 01/21/20 23:00 01/24/20 03:32 Morphine IV 2 mg Q4H PRN Administration Pain, Moderate (4-6) Ondansetron HCl 4 mg 01/21/20 23:00 01/22/20 01:29 Zofran IV 4 mg Q8H PRN Administration Nausea And Vomiting Sodium Chloride 10 ml 01/22/20 10:00 01/23/20 22:52 Sodium Chloride Flush Syringe 10 Ml IV 10 ml BID MICHELLE Administration Sodium Chloride 10 ml 01/21/20 23:00 Sodium Chloride Flush Syringe 10 Ml IV PRN PRN LINE FLUSH
[2020-01-24] MEDS ORDERED: SODIUM CHLORIDE 0.9% 1000 ML 1,000 ML IV SCH (11:00)
--- NOTE | 2020-01-24 14:29 | Anesthesia Consultation ---
<ALFREDITO SAMUEL - Last Filed: 01/24/20 14:25> Anesthesia Consult and Med Hx Date of service: 01/24/20 - Airway Anesthetic Teeth Evaluation: Dentures, Edentulous ROM Head & Neck: Adequate Mental/Hyoid Distance: Adequate Mallampati Class: Class II Intubation Access Assessment: Probably Good - Pre-Operative Health Status ASA Pre-Surgery Classification: ASA3, Emergency Proposed Anesthetic Plan: MAC - Pulmonary Hx Smoking: Yes (1 ppd) Hx Asthma: No Hx Respiratory Symptoms: No SOB: No COPD: No Home Oxygen Therapy: No Hx Pneumonia: No Hx Sleep Apnea: No - Cardiovascular System Hx Hypertension: Yes Hx Coronary Artery Disease: No Hx Heart Attack/AMI: No Hx Angina: No Hx Percutaneous Transluminal Coronary Angioplasty (PTCA): No Hx Cardia Arrhythmia: No Hx Pacemaker: No Hx Internal Defibrillator: No Hx Valvular Heart Disease: No Hx Heart Murmur: No Hx Peripheral Vascular Disease: No - Central Nervous System Hx Neuromuscular Disorder: No Hx Seizures: Yes (as child) CVA: No Hx Back Pain: Yes Hx Psychiatric Problems: Yes (bipolar/depression/suicidal) - Gastrointestinal Hx Ulcer: No Hx Gastroesophageal Reflux Disease: Yes - Endocrine Hx Renal Disease: No Hx End Stage Renal Disease: No Hx Cirrhosis: No Hx Liver Disease: No Hx Insulin Dependent Diabetes: No Hx Non-Insulin Dependent Diabetes: No Hx Thyroid Disease: No Hx Hypothyroidism: No Hx Hyperthyroidism: No - Hematic Hx Anemia: No Hx Sickle Cell Disease: No - Other Systems Hx Alcohol Use: Yes (10 beers a night) Hx Substance Use: Yes (crack, herion, cocaine ) Hx Cancer: No Hx Obesity: No <BRE CHAIDEZ - Last Filed: 01/25/20 13:02> Anesthesia Consult and Med Hx - Additional Comments Anesthesia Medical History Comments: Document co-signed for chart completion purposes only.
--- NOTE | 2020-01-24 14:32 | Anesthesia Day of Surgery ---
<ALFREDITO SAMUEL - Last Filed: 01/24/20 14:31> Anesthesia Day of Surgery - Day of Surgery Patient Examined: Yes Patient H&P Reviewed: Yes Patient is NPO: Yes <BRE CHAIDEZ - Last Filed: 01/25/20 13:02> Anesthesia Day of Surgery - Day of Surgery Patient Examined: No (Document co-signed for chart completion purposes only.)
[2020-01-24] MEDS ORDERED: GLUCAGON (HUMAN RECOMBINANT) 1 MG/ML INJ ONE (14:41)
--- NOTE | 2020-01-24 15:21 | Post Operative Note ---
Pre-op diagnosis: biliary stones Post-op diagnosis: same Findings: ERCP: nl ampullae - cbd filling defects - sphinterotomy - stone x 2 removed Procedure: ERCP Anesthesia: MAC Surgeon: AGUSTIN TUTTLE Estimated blood loss: none Pathology: list Specimen disposition: to lab Condition: stable Disposition: floor
--- NOTE | 2020-01-24 15:42 | Post Anesthesia Evaluation ---
<ALFREDITO SAMUEL - Last Filed: 01/24/20 15:42> - Post Anesthesia Evaluation Patient Participated: Yes Airway Patent: Yes Stable Respiratory Function: Yes Nausea/Vomiting: No Temp > 96.8F: Yes Pain Manageable: Yes Adequeate Hydration: Yes Anesthesia Complications: No Block Receding Appropriately: Not Applicable Patient on Ventilator: No <BRE CHAIDEZ - Last Filed: 01/25/20 13:01> - Post Anesthesia Evaluation Other Comments: Document co-signed for chart completion purposes only.
--- NOTE | 2020-01-24 16:48 | Operative Report ---
PROCEDURE: ERCP with sphincterotomy and stone extraction. INDICATION: Choledocholithiasis. MEDICATIONS: Propofol per [employer]. COMPLICATIONS: None. DESCRIPTION OF PROCEDURE: The patient brought to procedure suite. The patient had the procedure discussed with him at length. All risks, complications, and benefits discussed, which the patient signed for the procedure to be performed. The patient was placed in left lateral decubitus position. Mouth block was placed in the patient's oral cavity. After adequate sedation medication as above, endoscope placed in the mouth and brought to level of the second portion of duodenum. Retroflexion view was performed. The patient's vital signs remained stable throughout the procedure. FINDINGS: There was a normal appearing esophagus and stomach. The ampulla was noted. Second portion of duodenum appeared normal. Sphincterotome was then inserted with the aid of a guidewire and cholangiogram performed. ____ pancreatogram showed a normal-appearing pancreatic duct. Cholangiogram showed approximately 8-9 mm common bile duct with 2 small filling defects. The intrahepatic ducts, otherwise appeared normal. A medium sphincterotomy performed. A 12 mm balloon was then used to remove 2 medium sized stones. Occlusion cholangiogram showed no other filling defects. No other interventions were performed. No stents were placed. The patient tolerated the procedure well. No complications during the procedure. IMPRESSION: 1. Normal-appearing esophagus and stomach. 2. Normal ampulla. 3. Normal pancreatogram. 4. Cholangiogram with filling defects. 5. Sphincterotomy. 6. Stone x 2, removed. RECOMMENDATIONS: 1. Follow labs. 2. Clear liquid diet, advance as tolerated. 3. Avoid NSAIDs and aspirin for 7 days. 4. If stable in a.m., okay to discharge from GI standpoint. JOB# [id number] CAB/NTS
--- NOTE | 2020-01-24 16:53 | Fluoroscopy Report ---
ERCP INDICATION: Choledocholithiasis. Biliary stents FINDINGS: Multiple fluoroscopic images obtained of the common bile duct and main pancreatic duct. Sev eral filling defects are identified within the upper common bile duct. Balloon sweep noted. IMPRESSION: Choledocholithiasis status post balloon sweep. Fluoroscopy time: 4.6 minutes. Fluoroscopic images: 9. Signer Name: Alan Bernal MD Signed: 01/24/2020 4:49 PM Workstation Name: [id number]
[2020-01-24] MEDS: amLODIPine 10 MG TAB PO SCH (18:02)
[2020-01-24] MEDS: ONDANSETRON 4 MG/2 ML INJ IV PRN (18:21)
[2020-01-24] MEDS: THIAMINE 100 MG, FOLIC ACID 1 MG, MULTIPLE VITAMIN INJ, ADULT 10 ML in SODIUM CHLORIDE ... IV SCH (21:36)
[2020-01-25] MEDS: MORPHINE 2 MG/1 ML INJ IV PRN (00:16)
[2020-01-25] MEDS: D5W/LACTATED RINGERS 1,000 ML IV SCH ×2 (01:38→09:34)
[2020-01-25] MEDS: LORazepam 2 MG/ML VIAL IV PRN (01:40)
[2020-01-25] MEDS ORDERED: SIMETHICONE 80 MG CHEW TAB PO ONE (02:00)
[2020-01-25] MEDS: amLODIPine 10 MG TAB PO SCH (09:29)
[2020-01-25 11:34] VITALS: BP 154/75
[2020-01-25] MEDS ORDERED: FOLIC ACID 1 MG TAB PO SCH (12:00)
[2020-01-25] MEDS ORDERED: MULTIVITAMINS ,THERAPEUTIC TAB PO SCH (12:00)
[2020-01-25] MEDS ORDERED: THIAMINE 100 MG TAB PO SCH (12:00)
--- NOTE | 2020-01-25 12:26 | Discharge Summary ---
Providers - Providers Date of Admission: 01/21/20 23:04 Attending physician: CUCO IRELAND MD 01/22/20 10:28 Consult to Physician [CONS] Routine Comment: Consulting Provider: RAJEEV PROCTOR Physician Instructions: Reason For Exam: PANCREATITIS Primary care physician: DA[facility] ASSOCIATE Hospitalization Reason for admission: Abdominal pain with pancreatitis Condition: Stable Hospital course: 54-year-old male presenting to the emergency room today complaining of abdominal pain. Abdominal pain is said to be generalized and on a scale of 10 was 10/10. He has had associated nausea and vomiting, he has also had some constipation. Patient denies any coffee-ground emesis. He denies any diarrhea, no fever or chills, no chest pain or shortness of breath, no headache or dizziness. Patient admits that he drinks alcohol on a daily basis patient drinks about 6 packs/day. Patient denies any sick contacts, no recent travel, no exposure to anyone with COVID-19. Work-up in the emergency room including CT scan of the abdomen and pelvis reveals mild pancreatitis with cholelithiasis. Labs also shows elevated lipase levels. MRI: non obstructive choledocholithasis 01/22: Per patient and also has documented pains scale still 7. Keep n.p.o. Continue supportive care with IV fluids. Start p.o. clear liquids when patient is able to tolerate. Continue pain control. MRI reviewed as noted above. CIWA score is 1. No evidence of withdrawal at this time. 01/23: Clinically improving awaiting ERCP. Following ERCP will restart diet and if doing well will discharge in a.m. hypertension noted yesterday improvement with initiation of Norvasc. Patient will recommended to keep a blood pressure diary and follow-up primary care physician outpatient 01/24: Patient underwent ERCP yesterday report shows ERCP: nl ampullae - cbd filling defects - sphinterotomy - stone x 2 removed During the course of the stay patient's blood pressure was dressed largest. Significant conversation was had with the patient and counseling on need to quit alcohol tobacco and he verbalized understanding he is homeless and stays now time. Case management assisting with placement. He is tolerating some clear liquids and recommended continue clear to soft diet. Heavy until at least 5 days. He understands that continued drinking will lead into severe pancreatitis. (1) Pancreatitis (2) Alcohol abuse (3) Cholelithiasis (4) acute gastroenteritis secondary to pancreatitis (5) Hyponatremia (6) Hyperbiliriumenima Disposition: DC-01 TO HOME OR SELFCARE Time spent for discharge: 35 minutes Core Measure Documentation - Palliative Care Palliative Care/ Comfort Measures: Not Applicable - Core Measures Any of the following diagnoses?: none Exam - Physical Exam Narrative exam: General appearance: Present: no acute distress, well-nourished - EENT Eyes: Present: PERRL, EOM intact ENT: hearing intact, clear oral mucosa, dentition normal - Neck Neck: Present: supple, normal ROM - Respiratory Respiratory effort: normal Respiratory: bilateral: CTA - Cardiovascular Rhythm: regular Heart Sounds: Present: S1 & S2. Absent: gallop, systolic murmur, diastolic murmur, rub - Extremities Extremities: no ischemia, pulses intact, pulses symmetrical, No edema, Full ROM Peripheral Pulses: within normal limits - Abdominal General gastrointestinal: Present: soft, tender, non-distended, normal bowel sounds. Absent: mass - Integumentary Integumentary: Present: clear, warm, dry - Musculoskeletal Musculoskeletal: strength equal bilaterally - Psychiatric Psychiatric: appropriate mood/affect, intact judgment & insight, cooperative, no agitated - Neurologic Neurologic: CNII-XII intact, no focal deficits, moves all extremities - Constitutional Vitals: Temp Pulse Resp BP Pulse Ox 98.8 F 76 18 154/75 97 01/25/20 11:16 01/25/20 11:16 01/25/20 11:16 01/25/20 11:16 01/25/20 11:16 Plan Activity: advance as tolerated, fall precautions Diet: low fat Special Instructions: record daily weights, record daily BP diary, smoking cessation, other (MUST QUIT ETOH) Follow up with: PRIMARY CARE, [Primary Care Provider] - 3-5 Days AGUSTIN TUTTLE MD [Staff Physician] - 7 Days Prescriptions: amLODIPine 10 mg PO QDAY #30 tablet Docusate Sodium [Colace CAP] 100 mg PO BID PRN #30 capsule PRN Reason: Constipation Folic Acid [Folvite] 1 mg PO DAILY #30 tablet Multivitamin Tab [Multiple Vitamin TAB (Theragran)] 1 each PO DAILY #30 tablet Pantoprazole [Protonix TAB] 40 mg PO DAILY #30 tablet Thiamine [Vitamin B-1] 100 mg PO QDAY #30 tablet
== END 2020-01-25 13:50 | disposition home or self-care (01) | DRG 444 ==
LOC: ED 15:47 → 3B-SURG 23:04
PROVIDERS: ADMIT Internal Medicine Geriatric Medicine; ATTEND Internal Medicine
PROC: 0FC98ZZ Extirpation of Matter from Common Bile Duct, Via Natural or Artificial Opening Endoscopic (ICD-10-PCS; principal; 2020-01-24)
PROC: BF101ZZ Fluoroscopy of Bile Ducts using Low Osmolar Contrast (ICD-10-PCS; 2020-01-24)
DX: K80.50 Calculus of bile duct without cholangitis or cholecystitis without obstruction (principal); K85.20 Alcohol induced acute pancreatitis without necrosis or infection; E87.1 Hypo-osmolality and hyponatremia; F10.10 Alcohol abuse, uncomplicated; E80.6 Other disorders of bilirubin metabolism; I10 Essential (primary) hypertension; F17.210 Nicotine dependence, cigarettes, uncomplicated; F31.9 Bipolar disorder, unspecified; K52.9 Noninfective gastroenteritis and colitis, unspecified; K21.9 Gastro-esophageal reflux disease without esophagitis; Y90.9 Presence of alcohol in blood, level not specified; K59.00 Constipation, unspecified; Z59.0 Homelessness; Z79.899 Other long term (current) drug therapy
CPT/HCPCS: 36415; 74019; 74177; 74181; 74330; 76705; 80048; 80053; 80076; 83690; 83735; 84100; 85025; 85027; 85610; 86140; G0378; C1726; J0330; J1170; J1610; J1644; J2060; J2250; J2270; J2370; J2405; J2704; J3010; J3411; J7030; J7121; Q9967

== ENCOUNTER 2021-09-25 07:58 | Emergency (ER) | payer SELFPAY ==
[2021-09-25] MEDS ORDERED: methylPREDNISolone ACETATE 80 MG/1 ML INJ IM ONE (08:14)
--- NOTE | 2021-09-25 08:14 | Emergency Department Report ---
ED Lower Extremity HPI - General Chief Complaint: Extremity Injury, Lower Stated Complaint: FOOT SWOLLEN Time Seen by Provider: 09/25/21 08:13 Source: patient Mode of arrival: Ambulatory Limitations: No Limitations - History of Present Illness Initial Comments: 56 yo comes to ER co right foot pain 3 weeks ago he stubbed the 5th digit on a table and since then he has had pain. He had/has no open area on the foot. But the the foot is red/inflammed/painful to touch - even put a sock on-- as in gout. Full ROM of toes-sp stubbing 5th digit 3 weeks ago. No evidence infectious etiology which was pts concerns. MD Complaint: other -: Gradual, week(s) Injury: Foot: Left Place: home Severity: moderate Severity scale (0 -10): 5 Improves With: nothing Worsens With: movement Treatments Prior to Arrival: other - Related Data Previous Rx's Medication Instructions Recorded Last Taken Type Pantoprazole [Protonix TAB] 40 mg PO DAILY #30 tablet 01/25/20 Unknown Rx amLODIPine 10 mg PO QDAY #30 tablet 01/25/20 Unknown Rx Colchicine 0.6 mg PO DAILY #11 09/25/21 Unknown Rx Ibuprofen [Motrin] 800 mg PO Q8HR PRN #30 tablet 09/25/21 Unknown Rx predniSONE [Deltasone] 20 mg PO DAILY #5 tablet 09/25/21 Unknown Rx Allergies Allergy/AdvReac Type Severity Reaction Status Date / Time No Known Allergies Allergy Verified 10/30/13 22:42 ED Review of Systems ROS: Stated complaint: FOOT SWOLLEN Other details as noted in HPI Comment: All other systems reviewed and negative ED Past Medical Hx - Past Medical History Previous Medical History?: Yes Hx Hypertension: Yes Hx Heart Attack/AMI: No Hx Liver Disease: No Hx Renal Disease: No Hx Sickle Cell Disease: No Hx Arthritis: Yes Hx Seizures: Yes (as child) Hx Asthma: No Hx COPD: No Additional medical history: Diverticulitis. Diverticular perforation - Surgical History Hx Pacemaker: No Hx Internal Defibrillator: No Additional Surgical History: shoulder surgery, colon resection. left leg hardware - Family History Family history: no significant - Social History Smoking Status: Current Every Day Smoker - Medications Home Medications: Home Medications Medication Instructions Recorded Confirmed Last Taken Type Pantoprazole [Protonix TAB] 40 mg PO DAILY #30 tablet 06/29/20 Unknown Rx amLODIPine 10 mg PO QDAY #30 tablet 01/25/20 Unknown Rx Colchicine 0.6 mg PO DAILY #11 09/25/21 Unknown Rx Ibuprofen [Motrin] 800 mg PO Q8HR PRN #30 tablet 09/25/21 Unknown Rx predniSONE [Deltasone] 20 mg PO DAILY #5 tablet 09/25/21 Unknown Rx ED Physical Exam - General Limitations: No Limitations General appearance: alert, in no apparent distress - Head Head exam: Present: atraumatic, normocephalic - Eye Eye exam: Present: normal appearance - ENT ENT exam: Present: mucous membranes moist - Neck Neck exam: Present: normal inspection - Respiratory Respiratory exam: Present: normal lung sounds bilaterally. Absent: respiratory distress - Cardiovascular Cardiovascular Exam: Present: regular rate, normal rhythm. Absent: systolic murmur, diastolic murmur, rubs, gallop - GI/Abdominal GI/Abdominal exam: Present: soft, normal bowel sounds - Rectal Rectal exam: Present: deferred - Extremities Exam Extremities exam: Present: normal inspection - Expanded Lower Extremity Exam Right Foot/Toe exam: Present: tenderness, swelling, erythema Neuro vascular tendon exam: Present: no vascular compromise - Back Exam Back exam: Present: normal inspection - Neurological Exam Neurological exam: Present: alert, oriented X3 - Psychiatric Psychiatric exam: Present: normal affect, normal mood - Skin Skin exam: Present: warm, dry, intact, normal color. Absent: rash ED Lower Extremity MDM - Medical Decision Making pt's foot is red, swollen and inflammed as in gout warm to touch dp / pt plus 2 neurovasc intact rapid cap refill full rom It hurts pt to put sock on he endorses eating a lot of red meat and etoh. VS normal as documented manually by RN medicated with depmedrol IM in ER dc home with dc plan of care including diet/med/activity/follow up instructions. Pt verbalizes understanding of dc plan of care. - Differential Diagnosis gout r foot v trauma v infectious etiology Critical care attestation.: If time is entered above; I have spent that time in minutes in the direct care of this critically ill patient, excluding procedure time. ED Disposition Clinical Impression: Gout Qualifiers: Gout site: foot Encounter type: initial encounter Laterality: right Presence of tophus: without tophus Disposition: 01 HOME / SELF CARE / HOMELESS Is pt being admited?: No Does the pt Need Aspirin: No Condition: Stable Instructions: Low-Purine Eating Plan Additional Instructions: follow up with pcp as we discussed referral below avoid alcohol and red meat- see attached Prescriptions: Colchicine 0.6 mg PO DAILY #11 predniSONE [Deltasone] 20 mg PO DAILY #5 tablet Ibuprofen [Motrin] 800 mg PO Q8HR PRN #30 tablet PRN Reason: Pain, Moderate (4-6) Referrals: EUGNEIA EDDY MD [Staff Physician] - 3-5 Days Forms: Work/School Release Form(ED) Time of Disposition: 08:14
[2021-09-25 08:53] VITALS: BP 156/89
== END 2021-09-25 08:52 | disposition home or self-care (01) ==
LOC: ED 07:58
DX: M10.9 Gout, unspecified (principal); I10 Essential (primary) hypertension; F17.200 Nicotine dependence, unspecified, uncomplicated
CPT/HCPCS: 96372; 99282; J1040